=== PATIENT | female | born 1960 | race Caucasian/White ===

== ENCOUNTER 2019-08-10 11:19 | Inpatient (IN) | payer MEDICAID ==
[~2019-08-10] VITALS: Ht 154.9 cm; Wt 99.0 kg
[2019-08-10 11:45] VITALS: Ht 154.9 cm; Wt 99.0 kg
[2019-08-10 12:50] LABS: BASOPHIL % 0.3 % (0-2); PLATELET COUNT 160 x10^3mcL (130-400)
[2019-08-10 12:51] LABS: RED CELL DISTRIBUTION WIDTH 15.4 % (11.5-14.5)
[2019-08-10 12:53] LABS: CALCIUM 8.3 mg/dL (8.5-10.1); CARBON DIOXIDE 26.6 mmol/L (21-32); CHLORIDE SERUM 99 mmol/L (98-107); CREATININE SERUM 0.8 mg/dL (0.6-1.0); GFR1 > 60 mL/min; GLUCOSE SERUM 104 mg/dL (74-106); POTASSIUM SERUM 3.6 mmol/L (3.5-5.1); SODIUM SERUM 133 mmol/L (136-145)
[2019-08-10 13:02] LABS: ALKALINE PHOSPHATASE 88 U/L (46-116); ALT/SGPT 56 U/L (14-59); AST/SGOT 50 U/L (15-37); BILIRUBIN TOTAL 0.31 mg/dL (0.20-1.00); LACTIC DEHYDROGENASE (LDH) 404 U/L (100-190); TOTAL PROTEIN, SERUM 7.4 g/dL (6.4-8.2)
[2019-08-10 13:16] LABS: ALBUMIN 2.9 g/dL (3.4-5.0)
[2019-08-10 13:17] LABS: C REACTIVE PROTEIN 17.6 mg/dL (<=0.9)
[2019-08-10 15:03] LABS: UA SPECIFIC GRAVITY 1.025 (1.005-1.035); microscopic required? YES; urine erythrocyte NEGATIVE (NEGATIVE)
[2019-08-10 15:12] LABS: CHOLESTEROL/HDL RATIO 3.7
[2019-08-10 15:32] VITALS: BP 124/102
[2019-08-10 15:55] VITALS: BP 105/72
[2019-08-10 18:02] VITALS: BP 112/69
[2019-08-10 21:40] VITALS: BP 119/77
[2019-08-11 05:31] VITALS: BP 105/71
[2019-08-11 06:30] LABS: PLATELET COUNT 167 x10^3mcL (130-400)
[2019-08-11 06:47] LABS: RED CELL DISTRIBUTION WIDTH 15.3 % (11.5-14.5)
[2019-08-11 07:14] LABS: ALKALINE PHOSPHATASE 85 U/L (46-116); ALT/SGPT 50 U/L (14-59); AST/SGOT 53 U/L (15-37); BILIRUBIN TOTAL 0.2 mg/dL (0.20-1.00); CALCIUM 8.3 mg/dL (8.5-10.1); CARBON DIOXIDE 26.6 mmol/L (21-32); CHLORIDE SERUM 99 mmol/L (98-107); CREATININE SERUM 0.9 mg/dL (0.6-1.0); GFR1 > 60 mL/min; GLUCOSE SERUM 195 mg/dL (74-106); PHOSPHOROUS 3.5 mg/dL (2.5-4.9); SODIUM SERUM 136 mmol/L (136-145)
[2019-08-11 07:21] LABS: ALBUMIN 2.6 g/dL (3.4-5.0)
[2019-08-11 09:14] VITALS: BP 101/60
[2019-08-11 10:20] LABS: BAND NEUTROPHIL 2 % (0-10); MONOCYTE 4 % (0-7); SEGMENTED NEUTROPHILS 76 % (37-75); rbc morphology (normal/abnorm) NORMAL (NORMAL)
[2019-08-11 12:41] VITALS: BP 113/70
[2019-08-11 16:51] VITALS: BP 112/87
[2019-08-11 19:44] VITALS: BP 121/72
[2019-08-12 05:06] VITALS: BP 102/60
[2019-08-12 06:33] LABS: BASOPHIL % 0.2 % (0-2); PLATELET COUNT 202 x10^3mcL (130-400)
[2019-08-12 06:49] LABS: RED CELL DISTRIBUTION WIDTH 15.2 % (11.5-14.5)
[2019-08-12 06:52] LABS: ALBUMIN 2.6 g/dL (3.4-5.0); ALKALINE PHOSPHATASE 79 U/L (46-116); ALT/SGPT 57 U/L (14-59); AST/SGOT 54 U/L (15-37); BILIRUBIN TOTAL 0.25 mg/dL (0.20-1.00); CALCIUM 8.9 mg/dL (8.5-10.1); CARBON DIOXIDE 30.1 mmol/L (21-32); CHLORIDE SERUM 100 mmol/L (98-107); CREATININE SERUM 0.9 mg/dL (0.6-1.0); GFR1 > 60 mL/min; GLUCOSE SERUM 100 mg/dL (74-106); MAGNESIUM 2.1 mg/dL (1.8-2.4); POTASSIUM SERUM 4.2 mmol/L (3.5-5.1); SODIUM SERUM 137 mmol/L (136-145); TOTAL PROTEIN, SERUM 7.2 g/dL (6.4-8.2)
[2019-08-12 06:53] LABS: C REACTIVE PROTEIN 12.8 mg/dL (<=0.9)
[2019-08-12 09:00] VITALS: BP 123/70
[2019-08-12 12:18] VITALS: BP 109/73
[2019-08-12 18:05] VITALS: BP 121/61
[2019-08-12 20:03] VITALS: BP 114/78
[2019-08-13 05:43] VITALS: BP 114/78; BP 132/80
[2019-08-13 05:48] VITALS: BP 132/78
[2019-08-13 07:18] LABS: ALKALINE PHOSPHATASE 89 U/L (46-116); ALT/SGPT 61 U/L (14-59); AST/SGOT 60 U/L (15-37); BILIRUBIN TOTAL 0.3 mg/dL (0.20-1.00); CALCIUM 8.9 mg/dL (8.5-10.1); CARBON DIOXIDE 32.3 mmol/L (21-32); CHLORIDE SERUM 102 mmol/L (98-107); CREATININE SERUM 0.9 mg/dL (0.6-1.0); GFR1 > 60 mL/min; GLUCOSE SERUM 98 mg/dL (74-106); POTASSIUM SERUM 4.3 mmol/L (3.5-5.1); SODIUM SERUM 140 mmol/L (136-145); TOTAL PROTEIN, SERUM 7.4 g/dL (6.4-8.2)
[2019-08-13 07:22] LABS: ALBUMIN 2.7 g/dL (3.4-5.0)
[2019-08-13 07:30] LABS: BASOPHIL % 0.1 % (0-2); PLATELET COUNT 233 x10^3mcL (130-400)
[2019-08-13 07:48] LABS: RED CELL DISTRIBUTION WIDTH 15.5 % (11.5-14.5)
[2019-08-13 12:32] VITALS: BP 99/53
[2019-08-13 16:40] VITALS: BP 90/50
[2019-08-13 19:25] VITALS: BP 101/54
[2019-08-13 23:38] VITALS: BP 96/48
[2019-08-14 04:14] VITALS: BP 92/52
[2019-08-14 05:18] LABS: BASOPHIL % 0 % (0-2); PLATELET COUNT 324 x10^3mcL (130-400); RED CELL DISTRIBUTION WIDTH 15.5 % (11.5-14.5)
[2019-08-14 05:34] LABS: MAGNESIUM 2.4 mg/dL (1.8-2.4); PHOSPHOROUS 3.5 mg/dL (2.5-4.9)
[2019-08-14 05:35] LABS: ALBUMIN 2.4 g/dL (3.4-5.0); ALKALINE PHOSPHATASE 82 U/L (46-116); ALT/SGPT 54 U/L (14-59); AST/SGOT 45 U/L (15-37); BILIRUBIN TOTAL 0.35 mg/dL (0.20-1.00); CALCIUM 8.8 mg/dL (8.5-10.1); CHLORIDE SERUM 104 mmol/L (98-107); CREATININE SERUM 0.9 mg/dL (0.6-1.0); GFR1 > 60 mL/min; GLUCOSE SERUM 130 mg/dL (74-106); POTASSIUM SERUM 3.8 mmol/L (3.5-5.1); SODIUM SERUM 140 mmol/L (136-145); TOTAL PROTEIN, SERUM 6.8 g/dL (6.4-8.2)
[2019-08-14 07:56] VITALS: BP 99/52
[2019-08-14 12:00] VITALS: BP 113/51
[2019-08-14 16:00] VITALS: BP 117/68
[2019-08-14 19:25] VITALS: BP 118/74
[2019-08-14 23:46] VITALS: BP 119/71
[2019-08-15 03:50] VITALS: BP 134/68
[2019-08-15 06:15] LABS: BASOPHIL % 0 % (0-2); PLATELET COUNT 448 x10^3mcL (130-400); RED CELL DISTRIBUTION WIDTH 14.9 % (11.5-14.5)
[2019-08-15 06:35] LABS: ALKALINE PHOSPHATASE 90 U/L (46-116); ALT/SGPT 44 U/L (14-59); AST/SGOT 46 U/L (15-37); BILIRUBIN TOTAL 0.46 mg/dL (0.20-1.00); C REACTIVE PROTEIN 11.3 mg/dL (<=0.9); CALCIUM 8.9 mg/dL (8.5-10.1); CARBON DIOXIDE 29.2 mmol/L (21-32); CHLORIDE SERUM 106 mmol/L (98-107); CREATININE SERUM 0.8 mg/dL (0.6-1.0); GFR1 > 60 mL/min; GLUCOSE SERUM 108 mg/dL (74-106); MAGNESIUM 2.3 mg/dL (1.8-2.4); PHOSPHOROUS 3.4 mg/dL (2.5-4.9); SODIUM SERUM 141 mmol/L (136-145)
[2019-08-15 06:43] LABS: ALBUMIN 2.4 g/dL (3.4-5.0)
[2019-08-15 08:00] VITALS: BP 115/80
[2019-08-15 11:53] VITALS: BP 116/69
[2019-08-15 16:27] VITALS: BP 120/69
[2019-08-15 20:00] VITALS: BP 115/60
[2019-08-16] VITALS (19 sets, daily range): BP systolic 81–178; BP diastolic 36–104
[2019-08-16 07:01] LABS: ALKALINE PHOSPHATASE 112 U/L (46-116); ALT/SGPT 41 U/L (14-59); AST/SGOT 34 U/L (15-37); BILIRUBIN TOTAL 0.7 mg/dL (0.20-1.00); CALCIUM 9.1 mg/dL (8.5-10.1); CARBON DIOXIDE 26.6 mmol/L (21-32); CHLORIDE SERUM 104 mmol/L (98-107); CREATININE SERUM 0.9 mg/dL (0.6-1.0); GFR1 > 60 mL/min; GLUCOSE SERUM 128 mg/dL (74-106); POTASSIUM SERUM 4.8 mmol/L (3.5-5.1); SODIUM SERUM 141 mmol/L (136-145); TOTAL PROTEIN, SERUM 7.6 g/dL (6.4-8.2)
[2019-08-16 07:06] LABS: MAGNESIUM 2.3 mg/dL (1.8-2.4); PHOSPHOROUS 3.6 mg/dL (2.5-4.9)
[2019-08-16 07:07] LABS: BASOPHIL % 0.4 % (0-2)
[2019-08-16 07:08] LABS: PLATELET COUNT 531 x10^3mcL (130-400); RED CELL DISTRIBUTION WIDTH 15.5 % (11.5-14.5)
[2019-08-16 07:15] LABS: ALBUMIN 2.6 g/dL (3.4-5.0)
[2019-08-16 07:47] LABS: BASOPHIL % 0 % (0-2); PLATELET COUNT 539 x10^3mcL (130-400); RED CELL DISTRIBUTION WIDTH 15.4 % (11.5-14.5)
[2019-08-17] VITALS (17 sets, daily range): BP systolic 85–115; BP diastolic 45–79
[2019-08-17 05:46] LABS: PLATELET COUNT 301 x10^3mcL (130-400)
[2019-08-17 06:07] LABS: RED CELL DISTRIBUTION WIDTH 15.9 % (11.5-14.5)
[2019-08-17 07:36] LABS: BAND NEUTROPHIL 8 % (0-10); MONOCYTE 2 % (0-7); SEGMENTED NEUTROPHILS 86 % (37-75); rbc morphology (normal/abnorm) NORMAL (NORMAL)
[2019-08-17 09:19] LABS: BILIRUBIN TOTAL 0.4 mg/dL (0.20-1.00); CALCIUM 8.5 mg/dL (8.5-10.1); CARBON DIOXIDE 20.5 mmol/L (21-32); CREATININE SERUM 1.3 mg/dL (0.6-1.0); POTASSIUM SERUM 4.5 mmol/L (3.5-5.1); TOTAL PROTEIN, SERUM 6.7 g/dL (6.4-8.2)
[2019-08-17 09:21] LABS: ALBUMIN 2.4 g/dL (3.4-5.0)
[2019-08-18] VITALS (15 sets, daily range): BP systolic 89–130; BP diastolic 47–77
[2019-08-18 06:14] LABS: PLATELET COUNT 228 x10^3mcL (130-400)
[2019-08-18 06:48] LABS: BILIRUBIN TOTAL 0.6 mg/dL (0.20-1.00); CALCIUM 7.8 mg/dL (8.5-10.1); CARBON DIOXIDE 21.5 mmol/L (21-32); CREATININE SERUM 2.6 mg/dL (0.6-1.0); POTASSIUM SERUM 4.7 mmol/L (3.5-5.1)
[2019-08-18 06:52] LABS: ALBUMIN 1.5 g/dL (3.4-5.0); TOTAL PROTEIN, SERUM 5.4 g/dL (6.4-8.2)
[2019-08-18 07:13] LABS: BASOPHIL % 0 % (0-2)
[2019-08-18 14:47] LABS: microscopic required? YES; urine erythrocyte 3+ (NEGATIVE)
[2019-08-18 16:08] LABS: CREATININE UR 16.7 mg/dL (0.60-1.80)
[2019-08-18 17:30] LABS: CARBON DIOXIDE 22.4 mmol/L (21-32); CREATININE SERUM 2.8 mg/dL (0.6-1.0); POTASSIUM SERUM 4.5 mmol/L (3.5-5.1)
[2019-08-19] VITALS (14 sets, daily range): BP systolic 92–116; BP diastolic 53–70
[2019-08-19 06:46] LABS: PLATELET COUNT 159 x10^3mcL (130-400)
[2019-08-19 06:56] LABS: BILIRUBIN TOTAL 0.46 mg/dL (0.20-1.00); CARBON DIOXIDE 22.1 mmol/L (21-32); MAGNESIUM 2.6 mg/dL (1.8-2.4); PHOSPHOROUS 3.7 mg/dL (2.5-4.9); POTASSIUM SERUM 4.7 mmol/L (3.5-5.1)
[2019-08-19 06:58] LABS: ALBUMIN 1.2 g/dL (3.4-5.0); TOTAL PROTEIN, SERUM 5.3 g/dL (6.4-8.2)
[2019-08-19 07:11] LABS: BASOPHIL % 0 % (0-2); RED CELL DISTRIBUTION WIDTH 16.6 % (11.5-14.5)
[2019-08-19 08:22] LABS: C REACTIVE PROTEIN 43.9 mg/dL (<=0.9)
[2019-08-20] VITALS (13 sets, daily range): BP systolic 99–114; BP diastolic 52–69
[2019-08-20 05:54] LABS: BILIRUBIN TOTAL 0.55 mg/dL (0.20-1.00); CARBON DIOXIDE 29.9 mmol/L (21-32); CREATININE SERUM 2.6 mg/dL (0.6-1.0); POTASSIUM SERUM 4.7 mmol/L (3.5-5.1)
[2019-08-20 05:55] LABS: ALBUMIN 1.3 g/dL (3.4-5.0)
[2019-08-20 06:14] LABS: PLATELET COUNT 282 x10^3mcL (130-400)
[2019-08-20 06:16] LABS: BASOPHIL % 0 % (0-2); RED CELL DISTRIBUTION WIDTH 16.8 % (11.5-14.5)
[2019-08-21] VITALS (14 sets, daily range): BP systolic 92–112; BP diastolic 58–70
[2019-08-21 06:12] LABS: CALCIUM 7.6 mg/dL (8.5-10.1); CARBON DIOXIDE 31.9 mmol/L (21-32); CREATININE SERUM 3.7 mg/dL (0.6-1.0); MAGNESIUM 2.3 mg/dL (1.8-2.4); PHOSPHOROUS 5.9 mg/dL (2.5-4.9); POTASSIUM SERUM 4.6 mmol/L (3.5-5.1)
[2019-08-21 06:17] LABS: BASOPHIL % 0 % (0-2); PLATELET COUNT 193 x10^3mcL (130-400); RED CELL DISTRIBUTION WIDTH 16.5 % (11.5-14.5)
[2019-08-22] VITALS (15 sets, daily range): BP systolic 108–179; BP diastolic 36–686
[2019-08-22 06:12] LABS: CALCIUM 7.8 mg/dL (8.5-10.1); CARBON DIOXIDE 33.4 mmol/L (21-32); CREATININE SERUM 3.1 mg/dL (0.6-1.0); PHOSPHOROUS 3.7 mg/dL (2.5-4.9); POTASSIUM SERUM 4.3 mmol/L (3.5-5.1)
[2019-08-22 06:56] LABS: PLATELET COUNT 129 x10^3mcL (130-400); RED CELL DISTRIBUTION WIDTH 16.2 % (11.5-14.5)
[2019-08-22 14:16] LABS: BAND NEUTROPHIL 7 % (0-10); METAMYELOCTE 2 % (0-2); MONOCYTE 2 % (0-7); MYELOCYTE 2 % (0-2); SEGMENTED NEUTROPHILS 82 % (37-75); rbc morphology (normal/abnorm) ABNORMAL (NORMAL)
[2019-08-22 14:17] LABS: PLATELET MORPHOLOGY LARGE PLATELET SEEN
[2019-08-23] VITALS (15 sets, daily range): BP systolic 103–157; BP diastolic 53–90
[2019-08-23 07:01] LABS: PLATELET COUNT 83 x10^3mcL (130-400); RED CELL DISTRIBUTION WIDTH 16.1 % (11.5-14.5)
[2019-08-23 07:02] LABS: BASOPHIL % 0 % (0-2)
[2019-08-23 07:33] LABS: CALCIUM 8.1 mg/dL (8.5-10.1); CARBON DIOXIDE 23.8 mmol/L (21-32); MAGNESIUM 2.3 mg/dL (1.8-2.4); PHOSPHOROUS 5.1 mg/dL (2.5-4.9); POTASSIUM SERUM 4.6 mmol/L (3.5-5.1)
[2019-08-24] VITALS (14 sets, daily range): BP systolic 108–148; BP diastolic 55–75
[2019-08-24 06:31] LABS: BILIRUBIN TOTAL 0.42 mg/dL (0.20-1.00); CALCIUM 8.1 mg/dL (8.5-10.1); CARBON DIOXIDE 31.6 mmol/L (21-32); MAGNESIUM 2.7 mg/dL (1.8-2.4); PHOSPHOROUS 8.3 mg/dL (2.5-4.9)
[2019-08-24 06:47] LABS: ALBUMIN 1.4 g/dL (3.4-5.0); TOTAL PROTEIN, SERUM 5.7 g/dL (6.4-8.2)
[2019-08-24 06:48] LABS: CREATININE SERUM 4.1 mg/dL (0.6-1.0); POTASSIUM SERUM 5.8 mmol/L (3.5-5.1)
[2019-08-24 07:02] LABS: BASOPHIL % 0.1 % (0-2)
[2019-08-24 07:03] LABS: RED CELL DISTRIBUTION WIDTH 16.3 % (11.5-14.5)
[2019-08-24 07:04] LABS: PLATELET COUNT 103 x10^3mcL (130-400)
[2019-08-24 07:13] LABS: C REACTIVE PROTEIN 10.6 mg/dL (<=0.9)
[2019-08-25] VITALS (17 sets, daily range): BP systolic 99–150; BP diastolic 50–80
[2019-08-25 06:14] LABS: ALBUMIN 1.5 g/dL (3.4-5.0); BILIRUBIN TOTAL 0.4 mg/dL (0.20-1.00); C REACTIVE PROTEIN 9.1 mg/dL (<=0.9); CARBON DIOXIDE 28.9 mmol/L (21-32); MAGNESIUM 2.1 mg/dL (1.8-2.4); PHOSPHOROUS 5.4 mg/dL (2.5-4.9); POTASSIUM SERUM 4.5 mmol/L (3.5-5.1); TOTAL PROTEIN, SERUM 5.2 g/dL (6.4-8.2)
[2019-08-25 06:26] LABS: RED CELL DISTRIBUTION WIDTH 15.8 % (11.5-14.5)
[2019-08-25 06:27] LABS: PLATELET COUNT 117 x10^3mcL (130-400)
[2019-08-25 11:43] LABS: BAND NEUTROPHIL 2 % (0-10); MONOCYTE 10 % (0-7); SEGMENTED NEUTROPHILS 83 % (37-75)
[2019-08-25 11:45] LABS: rbc morphology (normal/abnorm) NORMAL (NORMAL)
[2019-08-26] VITALS (16 sets, daily range): BP systolic 88–139; BP diastolic 54–73
[2019-08-26 06:10] LABS: BASOPHIL % 0.1 % (0-2); PLATELET COUNT 159 x10^3mcL (130-400)
[2019-08-26 06:17] LABS: RED CELL DISTRIBUTION WIDTH 15.7 % (11.5-14.5)
[2019-08-26 06:27] LABS: CALCIUM 8.2 mg/dL (8.5-10.1); CARBON DIOXIDE 32.2 mmol/L (21-32); CREATININE SERUM 3.9 mg/dL (0.6-1.0); MAGNESIUM 2.6 mg/dL (1.8-2.4); PHOSPHOROUS 6.6 mg/dL (2.5-4.9); POTASSIUM SERUM 5.5 mmol/L (3.5-5.1)
[2019-08-26 06:29] LABS: C REACTIVE PROTEIN 12.2 mg/dL (<=0.9)
[2019-08-27] VITALS (13 sets, daily range): BP systolic 87–122; BP diastolic 50–64
[2019-08-27 05:32] LABS: PLATELET COUNT 182 x10^3mcL (130-400)
[2019-08-27 05:33] LABS: BASOPHIL % 0 % (0-2); RED CELL DISTRIBUTION WIDTH 15.4 % (11.5-14.5)
[2019-08-27 05:52] LABS: CALCIUM 7.7 mg/dL (8.5-10.1); CARBON DIOXIDE 28.5 mmol/L (21-32); CREATININE SERUM 3.2 mg/dL (0.6-1.0); MAGNESIUM 2.2 mg/dL (1.8-2.4); PHOSPHOROUS 6.7 mg/dL (2.5-4.9); POTASSIUM SERUM 4.4 mmol/L (3.5-5.1)
[2019-08-28] VITALS (19 sets, daily range): BP systolic 85–130; BP diastolic 46–64
[2019-08-28 05:33] LABS: BASOPHIL % 0.1 % (0-2); PLATELET COUNT 212 x10^3mcL (130-400)
[2019-08-28 05:37] LABS: RED CELL DISTRIBUTION WIDTH 16.3 % (11.5-14.5)
[2019-08-28 05:58] LABS: CALCIUM 8.1 mg/dL (8.5-10.1); CARBON DIOXIDE 25.8 mmol/L (21-32); MAGNESIUM 2.6 mg/dL (1.8-2.4); PHOSPHOROUS 8.5 mg/dL (2.5-4.9); POTASSIUM SERUM 5.1 mmol/L (3.5-5.1)
[2019-08-28 06:13] LABS: CREATININE SERUM 4.2 mg/dL (0.6-1.0)
[2019-08-29] VITALS (16 sets, daily range): BP systolic 105–129; BP diastolic 48–79
[2019-08-29 07:03] LABS: BASOPHIL % 0.3 % (0-2); PLATELET COUNT 216 x10^3mcL (130-400)
[2019-08-29 07:17] LABS: RED CELL DISTRIBUTION WIDTH 15.9 % (11.5-14.5)
[2019-08-29 07:18] LABS: CALCIUM 8.2 mg/dL (8.5-10.1); CARBON DIOXIDE 27.1 mmol/L (21-32); MAGNESIUM 2.8 mg/dL (1.8-2.4)
[2019-08-29 07:25] LABS: CREATININE SERUM 4.8 mg/dL (0.6-1.0)
[2019-08-29 07:27] LABS: POTASSIUM SERUM 5.9 mmol/L (3.5-5.1)
[2019-08-29 10:55] LABS: rbc morphology (normal/abnorm) ABNORMAL (NORMAL)
[2019-08-29 12:09] LABS: C REACTIVE PROTEIN 25.5 mg/dL (<=0.9)
[2019-08-29 21:22] LABS: CALCIUM 8.2 mg/dL (8.5-10.1)
[2019-08-29 21:33] LABS: CREATININE SERUM 5.1 mg/dL (0.6-1.0)
[2019-08-30] VITALS (16 sets, daily range): BP systolic 98–122; BP diastolic 33–431
[2019-08-30 06:27] LABS: PLATELET COUNT 224 x10^3mcL (130-400)
[2019-08-30 06:29] LABS: RED CELL DISTRIBUTION WIDTH 16.4 % (11.5-14.5)
[2019-08-30 07:03] LABS: CALCIUM 7.5 mg/dL (8.5-10.1); CARBON DIOXIDE 26.1 mmol/L (21-32); MAGNESIUM 2.8 mg/dL (1.8-2.4)
[2019-08-30 07:12] LABS: POTASSIUM SERUM 5.6 mmol/L (3.5-5.1)
[2019-08-30 07:44] LABS: PHOSPHOROUS 10.1 mg/dL (2.5-4.9)
[2019-08-30 08:08] LABS: BAND NEUTROPHIL 8 % (0-10); MONOCYTE 7 % (0-7); SEGMENTED NEUTROPHILS 80 % (37-75)
[2019-08-30 08:09] LABS: PLATELET MORPHOLOGY LARGE PLATELET SEEN; rbc morphology (normal/abnorm) ABNORMAL (NORMAL)
[2019-08-31] VITALS (7 sets, daily range): BP systolic 93–119; BP diastolic 49–65
[2019-08-31 05:53] LABS: CALCIUM 7.7 mg/dL (8.5-10.1); CARBON DIOXIDE 26.4 mmol/L (21-32); CREATININE SERUM 3.6 mg/dL (0.6-1.0); MAGNESIUM 2.4 mg/dL (1.8-2.4); POTASSIUM SERUM 5.3 mmol/L (3.5-5.1)
[2019-08-31 05:54] LABS: PHOSPHOROUS 9.1 mg/dL (2.5-4.9); PLATELET COUNT 207 x10^3mcL (130-400)
[2019-08-31 05:55] LABS: RED CELL DISTRIBUTION WIDTH 15.9 % (11.5-14.5)
[2019-08-31 06:06] LABS: C REACTIVE PROTEIN 7.6 mg/dL (<=0.9)
[2019-08-31 13:16] LABS: BAND NEUTROPHIL 18 % (0-10); METAMYELOCTE 1 % (0-2); MONOCYTE 5 % (0-7); MYELOCYTE 1 % (0-2); SEGMENTED NEUTROPHILS 70 % (37-75)
[2019-08-31 13:17] LABS: PLATELET MORPHOLOGY LARGE PLATELET SEEN; rbc morphology (normal/abnorm) ABNORMAL (NORMAL)
== END 2019-08-31 20:45 | disposition expired | DRG 720 ==
LOC: ED 11:19 → IC 13:59 → DU 13:59 → IC 08-13 09:08 → DU 08-13 10:03 → IC 08-13 10:15 → DU 08-13 14:57 → IC 08-13 14:59 → DU 08-13 15:09 → IC 08-13 15:17
PROVIDERS: Emergency Medicine; Family Medicine; Internal Medicine; ADMIT Student in an Organized Health Care Education/Training Program; ATTEND Student in an Organized Health Care Education/Training Program
PROC: 5A1955Z Respiratory Ventilation, Greater than 96 Consecutive Hours (ICD-10-PCS; principal; 2019-08-16)
PROC: 0BH17EZ Insertion of Endotracheal Airway into Trachea, Via Natural or Artificial Opening (ICD-10-PCS; 2019-08-16)
PROC: 02HV33Z Insertion of Infusion Device into Superior Vena Cava, Percutaneous Approach (ICD-10-PCS; 2019-08-16)
PROC: 05HM33Z Insertion of Infusion Device into Right Internal Jugular Vein, Percutaneous Approach (ICD-10-PCS; 2019-08-18)
PROC: B543ZZA Ultrasonography of Right Jugular Veins, Guidance (ICD-10-PCS; 2019-08-18)
PROC: 5A1D70Z Performance of Urinary Filtration, Intermittent, Less than 6 Hours Per Day (ICD-10-PCS; 2019-08-19)
PROC: 5A1D70Z Performance of Urinary Filtration, Intermittent, Less than 6 Hours Per Day (ICD-10-PCS; 2019-08-21)
PROC: 5A1D70Z Performance of Urinary Filtration, Intermittent, Less than 6 Hours Per Day (ICD-10-PCS; 2019-08-22)
PROC: 5A1D70Z Performance of Urinary Filtration, Intermittent, Less than 6 Hours Per Day (ICD-10-PCS; 2019-08-24)
PROC: 5A1D70Z Performance of Urinary Filtration, Intermittent, Less than 6 Hours Per Day (ICD-10-PCS; 2019-08-26)
PROC: 02HV33Z Insertion of Infusion Device into Superior Vena Cava, Percutaneous Approach (ICD-10-PCS; 2019-08-29)
PROC: B548ZZA Ultrasonography of Superior Vena Cava, Guidance (ICD-10-PCS; 2019-08-29)
PROC: 5A1D70Z Performance of Urinary Filtration, Intermittent, Less than 6 Hours Per Day (ICD-10-PCS; 2019-08-30)
PROC: 5A1D70Z Performance of Urinary Filtration, Intermittent, Less than 6 Hours Per Day (ICD-10-PCS; 2019-08-31)
DX: A41.89 Other specified sepsis (principal); U07.1 COVID-19; N17.0 Acute kidney failure with tubular necrosis; R65.21 Severe sepsis with septic shock; J90 Pleural effusion, not elsewhere classified; J96.01 Acute respiratory failure with hypoxia; J96.02 Acute respiratory failure with hypercapnia; J12.89 Other viral pneumonia; G93.40 Encephalopathy, unspecified; I95.9 Hypotension, unspecified; D72.819 Decreased white blood cell count, unspecified; E44.1 Mild protein-calorie malnutrition; I47.1 Supraventricular tachycardia; E66.2 Morbid (severe) obesity with alveolar hypoventilation; D72.829 Elevated white blood cell count, unspecified; I48.0 Paroxysmal atrial fibrillation; D64.9 Anemia, unspecified; N18.6 End stage renal disease; E11.22 Type 2 diabetes mellitus with diabetic chronic kidney disease; E83.39 Other disorders of phosphorus metabolism; E83.51 Hypocalcemia; J93.9 Pneumothorax, unspecified; E87.5 Hyperkalemia; I46.9 Cardiac arrest, cause unspecified; R74.0 Nonspecific elevation of levels of transaminase and lactic acid dehydrogenase [LDH]; E87.1 Hypo-osmolality and hyponatremia; Z90.49 Acquired absence of other specified parts of digestive tract; Z79.01 Long term (current) use of anticoagulants; Z68.34 Body mass index [BMI] 34.0-34.9, adult; Z79.899 Other long term (current) drug therapy; Z99.2 Dependence on renal dialysis
CPT/HCPCS: 31500; 36556; 36600; 82962; 83880; 85378; 87046; 87046-59; A4628; G0378; J0282; J0360; J1100; J1170; J1642; J1644; J1650; J2060; J2250; J2370; J2405; J2543; J2704; J3010; J3370; J3490; J3590; J7030; J7040; J7050; J8540; P9016; Q0092; U0003-CS